=== PATIENT | female | born 1990 | race Two or more races ===

== ENCOUNTER 2021-04-02 00:07 | Emergency (ER) | payer MEDICAID, OTHER ==
[~2021-04-02] VITALS: Ht 162.6 cm; Wt 67.1 kg
--- NOTE | 2021-04-02 00:12 | NUR ---
Pt ambulated to ER with c/o syncopal episode x 2 hours banquet [employer] while at restaurant eating. Pt hit her head and has a hematoma on forehead. A/O x4, no SOB or labored breathing. Afebrile,. significant other at bedside
--- NOTE | 2021-04-02 00:16 | NUR ---
Dr. Shaw at bedside, MSE in progress.
--- NOTE | 2021-04-02 01:16 | NUR ---
Patient discharged to home in stable condition. A/O x4, no SOB or labored breathing, afebrile. Denies any pain/discomfort at this time. Written and verbal after care instructions given. Patient verbalizes understanding of instructions. Stressed follow up or return to ER for worsening s/s. Clear speech, complete sentences. Accompanied by significant other.
[2021-04-02 01:21] VITALS: BP 112/66
== END 2021-04-02 01:22 | disposition home or self-care (01) ==
LOC: ER 00:07
DX: S00.83XA Contusion of other part of head, initial encounter (principal); W19.XXXA Unspecified fall, initial encounter; Y93.89 Activity, other specified; Y92.511 Restaurant or cafe as the place of occurrence of the external cause; Y99.8 Other external cause status; J45.909 Unspecified asthma, uncomplicated; R55 Syncope and collapse
CPT/HCPCS: 70450; 93005; A4663